=== PATIENT | male | born 1995 | race Caucasian/White ===

== ENCOUNTER 2016-06-14 20:48 | Emergency (ER) | payer OTHER ==
[2016-06-14 20:55] VITALS: O2SAT 95
[2016-06-14] MEDS ORDERED: OSELTAMIVIR PHOSPHATE 75 MG CAP PO ONE (21:34)
[2016-06-14] MEDS ORDERED: ONDANSETRON 4MG PREPACK#2 BTL TAKEHOME ONE (21:34)
--- NOTE | 2016-06-14 21:34 | EDPHY ---
H & P Stated Complaint: cough, congestion, n/v HPI/ROS: CHIEF COMPLAINT: Cough, nausea, vomiting, fever HISTORY OF PRESENT ILLNESS: 3-4 days of nausea vomiting, 4-5 days of cough. Symptoms started abruptly and have persisted. Moderate symptoms that are worse with activity in the morning. The improve minimally with [id number] medications. The vomiting includes anything with solids, but he has been keeping some liquids down over this.. No chills but he does have some fever. The diarrhea that is present is no different from his baseline Crohn's diarrhea. No abdominal pain. No flank pain. No urinary complaints. No other associated complaints or modifying factors. Does take Remicade periodically for his Crohn's. REVIEW OF SYSTEMS: Ten systems reviewed and are negative unless otherwise noted in the HPI EXAMINATION General Appearance: Alert, no distress Head: normocephalic, atraumatic Eyes: Pupils equal and round, no conjunctival pallor or injection ENT, Mouth: Mucous membranes moist . Uvula midline. No erythema or edema. Airways patent. Neck: Normal inspection, supple, non-tender Respiratory: Mild rhonchi. No wheezing, crackle or diminishment. No distress. Cardiovascular: Regular rate and rhythm . No murmur. Pulses intact distally. Gastrointestinal: Abdomen is soft and nontender Nonacute abdomen Neurological: A&O, nonfocal, normal gait Skin: Warm and dry, no rash Extremities: Nontender, no pedal edema Psychiatric: Mood and affect normal DIFFERENTIAL DIAGNOSES: Including but not limited to Influenza, viral illness, pneumonia, bronchitis, gastroenteritis, nausea vomiting, diarrhea MDM: 9:30 p.m. flu-like symptoms with a positive flu B. Patient's vital signs were well within normal limits. He was febrile at time of arrival but not on recheck just prior to my examination. Chest x-ray has been shot I do not appreciate any pneumonia. Given the fact that he is on Remicade, I will provide a prescription for Tamiflu and a prescription for Zithromax. He is not to start the Zithromax unless his symptoms worsen in the next 24-48 hours. He also be discharged home with Zofran and instructions to follow up with his primary care physician for definitive care. We discussed return to the ER precautions, and he is comfortable with this plan SUPERVISION: This patient was independently evaluated without the aide of supervising physician. Source: Patient Exam Limitations: No limitations - Personal History Current Tetanus Diphtheria and Acellular Pertussis (TDAP): Yes - Medical/Surgical History Hx Asthma: No Hx Chronic Respiratory Disease: No Hx Diabetes: No Hx Cardiac Disease: No Hx Renal Disease: No Hx Cirrhosis: No Hx Alcoholism: No Hx HIV/AIDS: No Hx Splenectomy or Spleen Trauma: No Other PMH: chrons - Social History Smoking Status: Never smoked Constitutional: Initial Vital Signs Temperature (C) 101.3 F H 06/14/16 20:53 Heart Rate 95 06/14/16 20:53 Respiratory Rate 20 06/14/16 20:53 Blood Pressure 122/73 H 06/14/16 20:53 O2 Sat (%) 95 06/14/16 20:53 Allergies/Adverse Reactions: adhesive tape Allergy (Verified 06/14/16 20:52) Home Medications: Medication Instructions Recorded Azithromycin [Zithromax] 250 mg PO DAILY #6 tab 06/14/16 Cymbalta 06/14/16 Fioricet (*) 06/14/16 Lialda 06/14/16 Ondansetron Odt [Zofran Odt 4 mg 4 mg PO Q6 PRN #12 tab 06/14/16 (*)] Oseltamivir Phosphate [Tamiflu 75 75 mg PO BID #10 cap 06/14/16 mg (*)] Remicade Inj 100 mg (*) 06/14/16 Medical Decision Making - Data Points Laboratory Results: 06/14/16 21:00 Influenza Typ A,B (DFA) POSITIVE FOR FLU B H (NEGATIVE) Departure - Departure Disposition: Home, Routine, Self-Care Clinical Impression: Influenza B Condition: Good Instructions: Ondansetron (By mouth), Oseltamivir (By mouth), Influenza (ED), H1N1 Influenza (ED) Additional Instructions: follow-up on campus or with primary care physician. Return to the ER for worsening symptoms, chest pain, shortness of breath or persistent fever Referrals: NONE *PRIMARY CARE P,. [Primary Care Provider] - As per Instructions Sandra Martin MD [Medical Doctor] - As per Instructions [facility] [[facility]] - As per Instructions Prescriptions: Azithromycin [Zithromax] 250 mg PO DAILY #6 tab Ondansetron Odt [Zofran Odt 4 mg (*)] 4 mg PO Q6 PRN #12 tab PRN Reason: Nausea/Vomiting, Use 1st Oseltamivir Phosphate [Tamiflu 75 mg (*)] 75 mg PO BID #10 cap
[2016-06-14 21:49] VITALS: BP 123/76; PULSE 84; RESP 16; TEMP 99.1
== END 2016-06-14 21:49 | disposition home or self-care (01) ==
DX: J10.1 Influenza due to other identified influenza virus with other respiratory manifestations (principal)

== ENCOUNTER 2018-04-12 18:52 | Emergency (ER) | payer OTHER ==
[2018-04-12 19:12] VITALS: BP 125/61
--- NOTE | 2018-04-12 19:38 | EDPHY ---
H & P Smoking Status: Never smoked Time Seen by Provider: 04/12/18 19:24 HPI/ROS: CHIEF COMPLAINT: Right wrist pain post mechanical HISTORY OF PRESENT ILLNESS: 22-year-old [id number] male complaining of acute right ulnar styloid and ulnar wrist pain after he sustained a mechanical fall from standing, fell onto the ulnar aspect of his right wrist. Reproducible pain with range of motion. No paresthesia. No sensory motor deficit. No proximal pain or injury. PHYSICAL EXAM (Prior to examination, patient consented to physical exam, hands were washed and my usual and customary physical exam procedures followed) 1) GENERAL: Well-developed, well-nourished, alert and oriented. Appears to be in no acute distress. 2) HEAD: Normocephalic 3) HEENT: Pupils equal, round, reactive to light bilaterally. 4) LUNGS: Breathing comfortably. 5) MUSCULOSKELETAL: Tender to palpation ulnar styloid. Intact skin. No signs of trauma. Soft compartments. Normal coloration. 6) SKIN: Intact 7) VASCULAR: pulses and cap refill present are brisk 8) NEUROLOGIC: Radial, ulnar, median nerve function intact with no deficits appreciated on exam DIFFERENTIAL DIAGNOSIS: in no particular order including but not limited to fracture, sprain, compartment syndrome Procedure: Splint A Velcro volar splint was applied by ER audiology technician. After application of the splint I returned and re-examined the patient. The splint was adequately immobilizing the joint and distal to the splint the patient's circulation and sensation were intact. Patient shows no signs of compartment syndrome. Was given orthopedic precautions. (Nixon Wiggins Manisha) Constitutional: Initial Vital Signs Temperature (C) 36.8 C 04/12/18 19:10 Heart Rate 68 04/12/18 19:10 Respiratory Rate 16 04/12/18 19:10 Blood Pressure 125/61 H 04/12/18 19:10 O2 Sat (%) 95 04/12/18 19:10 O2 Delivery Mode Room Air Allergies/Adverse Reactions: adhesive tape Allergy (Verified 11/29/17 10:57) Home Medications: Medication Instructions Recorded Lialda 06/14/16 MDM/Departure - MDM Imaging Results: Images reviewed myself (Nixon Wiggins) ED Course/Re-evaluation: Care of patient under supervision of secondary supervising physician Dr Arceo . (Nixon Wiggins) I did not see this patient while he was in the emergency department. However his care was discussed with the PA while the patient was in the department. I agree with treatment plan and management (Ezekiel Arceo Ran) - Depart Disposition: Home, Routine, Self-Care Clinical Impression: Wrist sprain Condition: Good Instructions: Wrist Sprain (ED) Additional Instructions: Return to the ER immediately if you experience discoloration, have worsening pain, numbness, tingling, or any other symptoms that concern you. If you received x-rays in the emergency department today, be advised, that ligamentous , tendon, muscular, and other non-bony injury cannot be fully ruled out. Try to keep your affected extremity elevated above the level of your chest, and keep cold packs on the affected area, for the next 48 hours. Adult Pain & Fever Control: We recommend Acetaminophen (Tylenol) and Ibuprofen (Motrin,Advil) for pain and fever control. When fever is high or pain severe, both drugs can be used at the same time, but at different intervals. Please note the time differences. Your dose is: Acetaminophen [650]mg every 4 to 6 hours Ibuprofen 600mg every 6 hours with food OR Note: do not take Acetaminophen with Hydrocodone (Vicodin, Lortab) or Oycodone (Percocet). These medications also contain Acetaminophen. No more than 3000mg of Acetaminophen should be taken in 24 hours (for an adult). Referrals: Mckay Valenzuela MD [Medical Doctor] - 5-7 days, call for appt.
== END 2018-04-12 20:01 | disposition home or self-care (01) ==
DX: S63.501A Unspecified sprain of right wrist, initial encounter (principal); W19.XXXA Unspecified fall, initial encounter; Y92.9 Unspecified place or not applicable; Y93.9 Activity, unspecified; Y99.9 Unspecified external cause status
CPT/HCPCS: L3984